=== PATIENT | male | born 1990 | race African-American/Black ===

== ENCOUNTER 2017-04-04 09:38 | Emergency (ER) | payer OTHER ==
[~2017-04-04] VITALS: Ht 170.2 cm; Wt 60.0 kg
[2017-04-04 09:40] VITALS: BP 136/80
== END 2017-04-04 10:34 | disposition left against medical advice (07) ==
LOC: ER 10:05
DX: R45.851 Suicidal ideations (principal); Z53.21 Procedure and treatment not carried out due to patient leaving prior to being seen by health care provider